=== PATIENT | female | born 1935 | race Caucasian/White ===

== ENCOUNTER 2017-04-07 11:15 | Emergency (ER) | payer BC, OTHER ==
[~2017-04-07] VITALS: Ht 165.1 cm; Wt 68.1 kg
[~2017-04-07 11:15] MED LIST: ASPIR 8181 M1 PO; Aspirin E.C. PO; BACTRIM,SEPT1 TABLET PO; FLEXERIL10 MG PO; Flexeril PO; GLUCOVANCE 51 TABLET PO; LANTUS 10100 UNITS/ SC; LANTUS 3 M100 UNITS/ SC; LASIX40 MG PO; LIPITOR20 MG PO; LOSARTAN POTASS25 MG PO; LYRICA50 MG PO; Lipitor PO; NEXIUM40 MG PO; NOVOLOG PE100 UNITS/ SC; PLAVIX75 MG PO; PYRIDIUM100 MG PO; SONATA10 MG PO; TOPROL XL50 MG PO; TRILIPIX135 MG PO; ULTRAM50 MG PO; XANAX0.5 MG PO; XANAX1 MG PO; ZESTRIL,PRINIVI10 M1 PO; ZETIA10 MG PO
[2017-04-07 12:09] LABS: POINT-OF-CARE METER ID UU13113778
[2017-04-07 13:53] LABS: EOSINOPHIL COUNT 0.1 K/uL (0-0.3); HEMATOCRIT 40.7 % (36.0-46.0); IMMATURE GRANULOCYTE (%) 0.6 % (0.0-0.7); INSTRUMENT ABS NEUTROPHIL CT 3.4 K/uL; LYMPHOCYTE COUNT 1.5 K/uL (1.0-2.8); MCH 27.3 PG (29.0-34.0); MCHC 32.9 G/DL (30.0-36.0); MCV 83.1 FL (83-99); MEAN PLAT.VOLUME 11.2 uM^3 (9.5-12.4); MONOCYTE (%) 7.4 % (3-12); MONOCYTE COUNT 0.4 K/uL (0-0.8); NEUTROPHIL (%) 61.5 % (45-76); NEUTROPHIL COUNT 3.4 K/uL (1.8-6.4); PLATELET COUNT 186 K/uL (156-360); RBC DIS.WIDTH-SD 38.7 % (39-53); WHITE BLOOD COUNT 5.4 K/uL (4.1-10.2)
[2017-04-07 14:03] LABS: INTER. NORMALIZED RATIO 1.1; PROTHROMBIN TIME 11.1 (9.2-11.2); PTT 26.8 (25-32)
[2017-04-07 14:04] LABS: CHLORIDE 102 mEq/L (99-109); POTASSIUM 4.4 mEq/L (3.7-5.4); SODIUM 140 mEq/L (136-147)
[2017-04-07 14:05] LABS: MAGNESIUM 1.1 mg/dL (1.3-2.7)
[2017-04-07 14:06] LABS: GLUCOSE 296 mg/dL (70-99)
[2017-04-07 14:07] LABS: ANION GAP 13 MEQ/L (2-14)
[2017-04-07 14:10] LABS: GFR ESTIMATE (CALCULATED) 33 mL/min/; UREA NITROGEN (BUN) 35 mg/dL (9-23)
[2017-04-07 14:14] LABS: TROP-I INTERPRETATION NEGATIVE; TROPONIN-I < 0.01 ng/mL (0.0-0.30)
[2017-04-07 15:23] LABS: ADD MIUA? YES; BILIRUBIN NEGATIVE; BLOOD NEGATIVE; COLOR YELLOW ((YELLOW)); GLUCOSE (STRIP) 150; KETONES NEGATIVE; LEUKOCYTES SMALL; NITRITE NEGATIVE; PROTEIN (STRIP) 30; SPECIFIC GRAVITY 1.015 (1.000-1.030); UROBILINOGEN 0.2 MG/DL (0.2-1.0)
[2017-04-07 15:43] LABS: BACTERIA NONE SEEN /HPF; EPITHELIAL CELLS 1+ /HPF; MUCUS TRACE /LPF; RED BLOOD CELLS 0-5 /HPF (0-5); UCUL ADDED? NO; WHITE BLOOD CELLS 0-5 /HPF (0-5)
[2017-04-07 17:00] VITALS: BP 162/55
== END 2017-04-07 17:33 | disposition home or self-care (01) ==
LOC: EME 11:15
PROVIDERS: Emergency Medicine
DX: E11.65 Type 2 diabetes mellitus with hyperglycemia (principal); W18.30XA Fall on same level, unspecified, initial encounter; I10 Essential (primary) hypertension; E78.5 Hyperlipidemia, unspecified; K21.9 Gastro-esophageal reflux disease without esophagitis; I25.2 Old myocardial infarction; Z95.1 Presence of aortocoronary bypass graft; Z79.4 Long term (current) use of insulin
CPT/HCPCS: 70450; 71010; 80048; 81003; 82948; 83735; 84484; 85025; 85610; 85730; 93005; 99281; 99285; J7030